=== PATIENT | female | born 2000 | race Caucasian/White ===

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

== ENCOUNTER 2019-03-26 11:07 | Inpatient (IN) | payer MEDICAID ==
[~2019-03-26] VITALS: Ht 165.1 cm; Wt 88.3 kg
[~2019-03-26 11:07] MED LIST: PREN-19 PO
[2019-03-26 11:21] VITALS: Ht 165.1 cm; Wt 88.3 kg
--- NOTE | 2019-03-26 11:41 | TRIAGE ---
OB Triage Datetime Report Generated by CPN: 03/26/2019 11:41 Datetime: 03/26/2019 11:37 Maternal Assessment Level of Consciousness: Keenly Alert, Responsive DTR's/Clonus: DTRs 1+ Headache: Denies Blurred Vision: No Respiratory Effort: Unlabored Breath Sounds, Left: Clear and Equal Breath Sounds, Right: Clear and Equal Nausea/Vomiting: Denies RUQ Epigastric Pain: Denies Facial Edema: None Labor Evaluation Frequency: 1-3 Monitor Mode: External Duration (sec)2399: 40-50 Quality: Mild Pattern: Normal: <= 5 Contractions in 10 Minutes Resting Tone [place]: Relaxed Heart Rate FHR Baseline Rate: 130 Monitor Mode: External US Variability: Moderate 6-25 bpm Accelerations: 15X15 Decelerations: None Category: Category I Pain Assessment Pain Scale: 0 Pain Presence: None/Denies Pain Type: N/A Pain Goal: 3 Membrane Status: Intact Datetime: 03/26/2019 11:33 Vaginal Exam Dilatation (cms): 2.0 Effacement (%): 80 Station: -3 Exam By: PREETI OLIVA Vaginal Bleeding: None Cervix, Consistency: Soft Cervix, Position: Midposition Presentation 'A': Cephalic Datetime: 03/26/2019 11:11 Assessment Type: Triage Maternal Assessment Level of Consciousness: Keenly Alert, Responsive DTR's/Clonus: DTRs 2+; No Clonus Headache: Denies Blurred Vision: No Respiratory Effort: Unlabored; Regular Rhythm; Equal Expansion Breath Sounds, Left: Clear and Equal Breath Sounds, Right: Clear and Equal Nausea/Vomiting: Denies RUQ Epigastric Pain: Denies Lower Extremities Edema: None Degree: None Upper Extremities Edema: None Degree: None Facial Edema: None Fall Risk Assessment History of Falling: (0) No Secondary Diagnosis: (0) No Ambulatory Aid: (0) Bedrest/Nurse Assist IV Therapy: (0) No Gait: (0) Normal/Bedrest/Immobile Mental Status: (0) Oriented to Own Ability Fall Score: 0 Fall Risk Score Definition: No Risk: No action required Datetime: 03/26/2019 10:57 Time of Arrival: 03/26/2019 10:57 EGA: 36.0 Arrived By: Ambulatory Arrived From: Home Chief Complaint: PT CAME IN C/O SPOTTING Movement: Present Contractions: Denies/Absent Rupture of Membranes: Denies Vaginal Discharge: Denies Recent Sexual Intercouse: Denies Abdominal Trauma: Not Applicable Additional Patient Complaints: NONE Time Provider Notified: 03/26/2019 11:19 Provider Notified: TABITHA Initial Plan: MONITOR AND VE Datetime: 12/20/2018 02:04 EGA: 22.2
--- NOTE | 2019-03-26 11:46 | HP ---
Date/Time of Note Date/Time of Note DATE: 03/26/19 TIME: 11:45 OB - History Hx of Present Free Text/Dictation @36+wks GA in labor : 1 Para: 0 Care: Good Care Medical Complications: None Past Family/Social History * Past Medical, Surgical, Family and Obstetric Histories reviewed from chart. OB Admission Exam Physical Exam Abdomen: WNL Extremities: Normal Cervical Dilatation: 2cm Effacement: 75% Station: -1 Membranes: Intact Heart Rate: 140's Accelerations: Accelerations Present Decelerations: No Decelerations Varibility: Moderate Contractions on Admission: 6-10 Minutes Apart OB Assessment/Plan Reason for admission: observation Other Assessment: PMH Denies PSH Denies Plan: Expectant Management ODELL LU M.D. Mar 26, 2019 11:46
[2019-03-26 13:27] VITALS: BP 121/73; PULSE 97; RESP 18
[2019-03-26] MEDS ORDERED: MISOPROSTOL 200 MCG TAB PR PRN (13:30)
[2019-03-26] MEDS ORDERED: OXYTOCIN 30 UNITS/LR 500 ML IV SCH ×2 (13:30)
[2019-03-26] MEDS ORDERED: LIDOCAINE 1% (MPF) 30 ML INJ INJ PRN (13:30)
[2019-03-26] MEDS ORDERED: OXYTOCIN 30 UNITS/LR 500 ML IV PRN (13:30)
[2019-03-26] MEDS ORDERED: METHYLERGONOVINE 0.2 MG INJ IM PRN (13:30)
[2019-03-26] MEDS ORDERED: AMPICILLIN 2 GM/NS (PMX) 100 ML IV ONE (13:30)
[2019-03-26] MEDS ORDERED: CARBOPROST 250 MCG INJ IM PRN (13:30)
[2019-03-26] MEDS ORDERED: AMPICILLIN 1 GM/NS (PMX) 50 ML IV SCH (17:30)
[2019-03-26] MEDS: LACTATED RINGER'S 1,000 ML IV SCH (18:15)
[2019-03-27] MEDS: LACTATED RINGER'S 1,000 ML IV SCH (02:29)
--- NOTE | 2019-03-27 11:31 | PN ---
Triage Information Date/Time Mar 26, 2019 at 11:36 Subjective: 19-year-old G1 at 34 weeks and 2 days with complaints of contractions. Objective: Sterile vaginal exam 3 at 1933 on 03/26/2019. Follow-up SVE of /floating on 03/27/2019 at 1115. Vitals: Blood pressure 121/73, temperature 98.6, pulse 97 Electronic monitor with category 1 strip Past medical history: None Past surgical history: None Obsetric history: Primipara Gynecology history: Last menstrual period 07/16/2018 OMAR: 04/22/2019 Social history: Non-smoker no alcohol. Allergies: No known drug allergies labs: H/H7 0.8/34.5 HIV negative Glucola normal Chlamydia negative Hepatitis B surface antigen nonreactive Cystic fibrosis negative Assessment/plan: 1. 19-year-old G1 at 34 weeks and 2 days by second trimester ultrasound at 16 weeks and 6 days for rule out labor. Received 1 L IV LR with subsequent resolution of her contractions. Hospital course was uncomplicated and she was discharged home with follow-up for care in 1 week. Outside records reviewed. All inquiries addressed. 2. Anemia - vitamins. Disposition: Discharge to home Reason for visit: Uterine contractions Weeks of Gestation 34 2/7 /Para G1 Objective Vital Signs Date Temp Pulse Resp B/P (MAP) Pulse Ox O2 O2 Flow FiO2 Time Delivery Rate 03/26/19 98.6 97 18 121/73 Room Air 13:27 (89) Intake and Output 03/26/19 03/26/19 03/27/19 1414:59 22:59 06:59 IntakeIntake Total 1500 ml OutputOutput Total 1150 ml BalanceBalance 350 ml Results/Medications Result Diagram: 03/26/19 1219 Results 24 hrs Laboratory Tests Test 03/26/19 12:19 White Blood Count 7.9 Red Blood Count 3.86 L Hemoglobin 10.9 L Hematocrit 32.4 L Mean Corpuscular Volume 83.9 Mean Corpuscular Hemoglobin 28.2 L Mean Corpuscular Hemoglobin Concent 33.6 Red Cell Distribution Width 14.6 H Platelet Count 186 Mean Platelet Volume 11.3 H Immature Granulocytes % 0.900 H Neutrophils % 70.5 Lymphocytes % 21.2 Monocytes % 4.9 Eosinophils % 2.0 Basophils % 0.5 Nucleated Red Blood Cells % 0.0 Immature Granulocytes # 0.070 H Neutrophils # 5.6 Lymphocytes # 1.7 Monocytes # 0.4 Eosinophils # 0.2 Basophils # 0.0 Nucleated Red Blood Cells # 0.0 Prothrombin Time 12.9 Prothrombin Time Ratio 1.0 INR International Normalized Ratio 0.96 Activated Partial Thromboplast Time 30.7 Rapid Plasma Reagin NONREACTIVE Medications Current Medications Lidocaine (Xylocaine 1% (Mpf)) 30 ml ONCE PRN INJ .EPISIOTOMY; Start 03/26/19 at 13:30 Oxytocin/Lactated Ringer's 500 ml @ 500 mls/hr ONCE POST IV ; Start 03/26/19 at 13:30 Oxytocin/Lactated Ringer's 500 ml @ 125 mls/hr POST IV ; Start 03/26/19 at 13:30 Oxytocin/Lactated Ringer's 500 ml @ 0 mls/hr ONCE PRN IV .VAGINAL BLEEDING; Start 03/26/19 at 13:30 Methylergonovine Maleate (Methergine) 0.2 mg ONCE PRN IM .VAGINAL BLEEDING; Start 03/26/19 at 13:30 Carboprost Tromethamine (Hemabate) 250 mcg ONCE PRN IM .VAGINAL BLEEDING; Start 03/26/19 at 13:30 Misoprostol (Cytotec) 1,000 mcg ONCE PRN HI .VAGINAL BLEEDING; Start 03/26/19 at 13:30 Lactated Ringer's 1,000 ml @ 125 mls/hr Q8H IV Last administered on 03/27/19at 02:29; Admin Dose 125 MLS/HR; Start 03/26/19 at 18:30 MARGOT CARREON MD Mar 27, 2019 11:31
--- NOTE | 2019-03-27 11:33 | PDOCDIS ---
Discharge Instructions CONDITION [id number] Patient Condition: [id number] Good ACTIVITY: [id number] Activity Restrictions: [id number] No Restrictions MARGOT CARREON MD Mar 27, 2019 11:33
[2019-03-27] MEDS ORDERED: FERROUS SULFATE (EC) 325 MG TAB PO SCH (12:00)
== END 2019-03-27 11:27 | disposition home or self-care (01) | DRG 833 ==
LOC: OBT 11:07 → L-D 11:07 → OBT 11:36 → L-D 11:36
PROVIDERS: ADMIT Obstetrics & Gynecology; ATTEND Obstetrics & Gynecology
DX: O60.03 Preterm labor without delivery, third trimester (principal); Z3A.36 36 weeks gestation of pregnancy
CPT/HCPCS: 76815; 76818; 81001; 85025; 85610; 85730; 86592; 86850; 86900; 86901; G0463; J7120